=== PATIENT | female | born 1985 | race African-American/Black ===

== ENCOUNTER 2017-08-24 01:22 | Inpatient (IN) | payer MEDICAID, MEDICARE ==
[2017-08-24 02:23] LABS: Bilirubin Negative (Negative); Blood, Urine Large (Negative); Glucose, Urine (Dipstick) Negative (Negative); Ketone, Urine Negative (Negative); Nitrite Negative (Negative); Protein, Urine (Dipstick) 100 mg/dL (Neg-Trace)
[2017-08-24] MEDS ORDERED: Ketorolac Tromethamine 30 MG/ML VIAL ONE (02:24)
[2017-08-24 02:26] LABS: Bacteria/HPF 4+ HPF (None Seen); Squamous Epithelial 0-3 HPF (0-3)
[2017-08-24 02:38] LABS: Hyaline Casts/LPF 0-3 HYALINE CAST LPF (0-3 Hyaline)
[2017-08-24 03:02] LABS: ALT (SGPT) 53 U/L (8-55); AST (SGOT) 33 U/L (5-34); Alkaline Phosphatase 170 U/L (40-150); Anion Gap 16 mmol/L (10-20); BUN (Urea Nitrogen) 19 mg/dL (7.0-18.7); Bilirubin, Total 0.8 mg/dL (0.2-1.2); Calc. Creatinine Clearance 0 mL/min (70-130); Calcium 9.2 mg/dL (7.8-10.44); Carbon Dioxide 21 mmol/L (22-29); Chloride 99 mmol/L (98-107); Estimated GFR-MDRD 44; Globulin 4.2 g/dL (2.4-3.5); Protein, Total 7.6 g/dL (6.0-8.3)
[2017-08-24 03:19] LABS: Band 15 % (5-11); Hematocrit 32.4 % (36.0-47.0); Mean Platelet Volume 8.5 fL (7.4-10.4); Microcytosis SLIGHT = 6-15 cells (100X) (0-5/hpf); Neutrophil 70 % (42-75); Red Blood Cell (RBC) Count 4.03 mill/uL (4.20-5.40); Vacuoles SLIGHT; White Blood Cell (WBC) Count 35.4 thou/uL (4.8-10.8)
[2017-08-24 03:34] LABS: Lactic Acid - Sepsis 1.1 mmol/L (0.5-2.2)
[2017-08-24] MEDS ORDERED: Piperacillin/Tazobactam 4.5 GM in Sodium Chloride 0.9% 100 ML IVPB SCH (04:15)
[2017-08-24] MEDS ORDERED: traMADol HCl 50 MG TAB ONE (04:52)
[2017-08-24] MEDS ORDERED: Ondansetron HCl/PF 4 MG/2 ML Vial IVP PRN (05:48)
--- NOTE | 2017-08-24 06:08 | PDOC.EVN ---
Event Note - Event Note Event Note: [id number] H&P dictated 1. Sepsis 2. UTI 3. LOLI 4. Hypokalemia
[2017-08-24 06:25] LABS: Lactic Acid - Sepsis 0.7 mmol/L (0.5-2.2)
[2017-08-24] MEDS: Sodium Chloride 0.9% 1,000 ML IV SCH ×3 (06:31→18:44)
[2017-08-24] MEDS: Acetaminophen 325 MG TAB PO PRN ×4 (06:31→22:29)
[2017-08-24 07:05] VITALS: BMI 34.5
[2017-08-24] MEDS ORDERED: Sodium Chloride 0.9% 500 ML IV SCH (09:00)
--- NOTE | 2017-08-24 09:00 | HP ---
DATE OF ADMISSION: 08/24/2017 CHIEF COMPLAINT: Fever, body aches. HISTORY OF PRESENT ILLNESS: Patient is a 32-year-old female with no significant past medical history who came to the ER complaining of fever, chills, diffuse body aches. Symptoms started on , since then it persisted. The patient had an episode of nausea and vomiting also. The patient compla ins of loose stools today. Denies any cough, denies sputum production, complains of generalized fati ayush. The patient denies any dizziness, denies any lightheadedness, denies any cough, denies any ches t pain, denies any palpitations. PAST MEDICAL HISTORY: None. PAST SURGICAL HISTORY: Tubal ligation, cholecystectomy. SOCIAL HISTORY: Positive for smoking. Denies alcohol, denies any drugs. FAMILY HISTORY: Denies any heart problems. REVIEW OF SYSTEMS: Constitutional: Positive for fever and chills. Positive for body aches. Eyes: Vision problems. Ears: Denies any hearing loss. Neck: Denies any neck pain. Cardiovascular: De nies any chest pain. Respiratory: Denies any cough. Denies sputum production. Gastrointestinal: Positive for nausea and vomiting. Genitourinary: Positive for dysuria. Integumentary: Denies any rash. All other review of systems are reviewed and are negative. PHYSICAL EXAMINAITON: CONSTITUTIONAL/VITAL SIGNS: At the time of H&P performed, blood pressure is 119/70, heart rate of 10 1, pulse ox is 97%, temperature is 101.3. GENERAL: The patient appears tired. HEENT: Anterior nares patent. Nose normal. Ears normal. Teeth intact. Tongue is moist. NECK: Supple, no JVD. CARDIOVASCULAR SYSTEM: S1, S2 present, tachycardic. No murmurs, no rubs, no gallops. RESPIRATORY SYSTEM: No wheezing, no rhonchi. Breath sounds bilaterally. GASTROINTESTINAL: Abdomen is soft, nontender, no guarding, no organomegaly, no masses felt. Positiv e for mild flank tenderness bilaterally. INTEGUMENTARY: Denies rashes seen. CRANIAL NERVE SYSTEM: Cranial nerves intact. Follows commands. Strength intact, sensory intact. MUSCULOSKELETAL: No edema, good range of motion in all joints. PSYCHIATRIC: Mood is appropriate at this time. LABORATORY DATA: At the time of H&P performed, white count 35.4, hemoglobin 10.8, platelet count is 210. BMP: Sodium 130, potassium 3.4, chloride 99, CO2 21, BUN 19, creatinine 1.64. UA positive for greater than 50, too numerous to count WBCs, 100 protein. ASSESSMENT AND PLAN: The patient is a 32-year-old female: 1. Sepsis secondary to urinary tract infection. Plan to start the patient on broad spectrum antibio tics. Plan to consult ID to evaluate the patient. Plan to start the patient on IV fluids at 150 per hour. Plan to do p.r.n. Tylenol. 2. Nausea, vomiting, diarrhea. P.r.n. antiemetics. Monitor stool card. If diarrhea persists, then we will do further workup. 3. Urinary tract infection. Continue IV antibiotics. Plan to do CT renal stone protocol to evaluat e for any stone also. 4. Acute kidney injury. Continue IV fluids, repeat BMP in a.m. Avoid NSAIDs. The case was discussed in detail with the patient. Patient is full code.
[2017-08-24] MEDS: Piperacillin/Tazobactam 3.375 GM in Sodium Chloride 0.9% 100 ML IVPB SCH ×3 (10:50→21:37)
[2017-08-24] MEDS: Heparin 5,000 UNITS/ML VIAL SC SCH ×3 (10:51→21:37)
--- NOTE | 2017-08-24 10:51 | PDOC.EVN ---
Event Note - Event Note Event Note: Feels better now, No complaint. BP was low earlier, responded to a bolus of NS, 500cc. Continue current management.
[2017-08-24] MEDS ORDERED: FLU VACC QS2017-18 36 mo. & older 0.5 ML SYRINGE IM ONE (12:00)
--- NOTE | 2017-08-24 12:49 | CT ---
PRELIMINARY REPORT/[facility]/EMERGENCY AFTER HOURS PROCEDURE: EXAM: CT Abdomen and Pelvis Without Intravenous Contrast CLINICAL HISTORY: 32 years old, female; Pain; Abdominal pain; Localized; Lower; Prior surgery; Patient HX: Pt C/O lower abdominal pain radiating to lower back. Pt also C/O nausea. Surgical HX of cholecystectomy. TECHNIQUE: Axial computed tomography images of the abdomen and pelvis without intravenous contrast. Coronal reformatted images were created and reviewed. COMPARISON: No relevant prior studies available. FINDINGS: Lower thorax: No acute findings. ABDOMEN: Liver: Normal. Gallbladder and bile ducts: Cholecystectomy. Minimal nonspecific stranding about the gallbladder tunde a. Pancreas: Normal. Spleen: Normal. Adrenals: Normal. Kidneys and ureters: Moderate perinephric fat stranding and indistinct renal sinus fat bilaterally. N o renal or ureteral stone identified. No significant hydronephrosis. Stomach and bowel: Unremarkable. No obstruction. Appendix: No findings to suggest acute appendicitis. PELVIS: Bladder: Unremarkable. Reproductive: Unremarkable. ABDOMEN and PELVIS: Intraperitoneal space: No free air. No significant fluid collection. Bones/joints: Unremarkable. No acute fracture. Soft tissues: Unremarkable. Vasculature: Unremarkable. Lymph nodes: Multiple subcentimeter retroperitoneal lymph nodes. IMPRESSION: Bilateral perinephric fat stranding suspicious for pyelonephritis. Thank you for allowing us to participate in the care of your patient. Dictated and Authenticated by: Bruno Salcido MD 08/24/2017 6:56 AM Central Time ([place] & [place]) FINAL REPORT EMERGENCY AFTER HOURS CT OF ABDOMEN AND PELVIS PERFORMED WITHOUT CONTRAST ENHANCEMENT: Date: 08/24/17 HISTORY: Lower abdominal pain radiating to lower back. History of cholecystectomy. COMPARISON: 07/23/17 study. FINDINGS: The lung bases show subsegmental atelectatic change. The liver, spleen, and pancreas regions appear unremarkable. The gallbladder has been removed. Right and left adrenal glands are normal in appearance. Right and left kidneys show some perinephric fat stranding bilaterally, including some fat stranding in the region of the renal pelvis. This is a new finding as compared to the previous study. There is no significant periaortic or mesenteric adeno andie. CT of pelvis was performed without contrast enhancement. Appendix is normal. There appears to be a fo llicle or cyst involving the left adnexa. No evidence of adenopathy or mass. IMPRESSION: Bilateral perinephric fat stranding, which is new as compared to the previous study. This raises the possibility of pyelonephritis. Clinical correlation recommended. This report is in agreement with the preliminary report issued by [facility]. POS: [facility]
--- NOTE | 2017-08-24 17:34 | CON ---
DATE OF CONSULTATION: 08/24/2017 REASON FOR CONSULTATION: Pyelonephritis. HISTORY OF PRESENT ILLNESS: A 32-year-old with no significant past medical history who noticed dysuria which started a few days to the admission. She decided to take some amoxicillin that she had at home which did not lead to improvement. Eventually, she developed fever, chills, body aches, nausea and vomiting. She was admitted, started on broad spectrum coverage with some improvement. Currently, she denies headaches, visual symptoms, sore throat, odynophagia, dysphagia, no cough or sputum production or chest pain, no abdominal pain, no diarrhea, no more dysuria. No genitourinary symptoms otherwise. Last Pap smear recently was within normal limits. No neurological symptoms. PAST SURGICAL HISTORY: Includes tubal ligation. She is , cholecystectomy. SOCIAL HISTORY: Current smoker, used to work at [employer] FAMILY HISTORY: Noncontributory. CURRENT MEDICATIONS: Levofloxacin and Zosyn. FAMILY HISTORY: Noncontributory. PHYSICAL EXAMINATION: VITAL SIGNS: T-max 101.1 earlier today. She is now 99.6, BP 100/55. SKIN: Normal, no lymphadenopathy. HEENT: Noncontributory. NECK: Supple. LUNGS: Clear to auscultation and percussion. HEART: S1, S2, regular rate. No murmurs. No S3 or S4. ABDOMEN: Soft, without tenderness. No ascites. No bladder distention or organomegaly. EXTREMITIES: No joint inflammatory activity. NEUROLOGIC: Nonfocal. LABORATORY DATA: White cell count 35,000, hemoglobin 10, platelets 210, and 70 % neutrophils, 15% bands. Creatinine 1.64, GFR 44. Sodium 133, alkaline phosphatase 170, albumin 3.4. Urinalysis greater than 50 wbcs. Microbiology, pending cultures. Abdomen and pelvis CT was done, stone protocol style, bilateral perinephric fat stranding consistent with pyelonephritis. ASSESSMENT: Urinary tract infection with pyelonephritis. Still with quite pronounced inflammatory changes. DISCUSSION: The possibility of ESBL is considered and will switch her to meropenem until we have the culture results in view of the persistence of fever. Wait on culture results and then adjust antimicrobial therapy accordingly. MTDD
[2017-08-25] MEDS: Acetaminophen 325 MG TAB PO PRN ×2 (01:56→10:57)
[2017-08-25] MEDS: Sodium Chloride 0.9% 1,000 ML IV SCH ×4 (01:56→22:40)
[2017-08-25] MEDS: Piperacillin/Tazobactam 3.375 GM in Sodium Chloride 0.9% 100 ML IVPB SCH (04:55)
[2017-08-25 04:57] LABS: #Eosinphils 0.1 thou/uL (0.0-0.7); #Monocytes 1.6 thou/uL (0.11-0.59); #Neutrophils 13.4 thou/uL (1.40-6.50); %Basophils 0.1 % (0.0-1.0); %Eosinophils 0.4 % (0.0-10.0); %Lymphocytes 6.1 % (21.0-51.0); Hematocrit 28.3 % (36.0-47.0); Mean Platelet Volume 7.9 fL (7.4-10.4); Red Blood Cell (RBC) Count 3.48 mill/uL (4.20-5.40)
[2017-08-25 05:09] LABS: ALT (SGPT) 38 U/L (8-55); AST (SGOT) 31 U/L (5-34); Alkaline Phosphatase 120 U/L (40-150); Anion Gap 10 mmol/L (10-20); BUN (Urea Nitrogen) 10 mg/dL (7.0-18.7); Bilirubin, Total 0.7 mg/dL (0.2-1.2); Calc. Creatinine Clearance 112 mL/min (70-130); Calcium 8.3 mg/dL (7.8-10.44); Carbon Dioxide 20 mmol/L (22-29); Chloride 110 mmol/L (98-107); Estimated GFR-MDRD 74; Globulin 3.2 g/dL (2.4-3.5); Protein, Total 5.9 g/dL (6.0-8.3)
[2017-08-25] MEDS: Heparin 5,000 UNITS/ML VIAL SC SCH ×3 (08:12→20:19)
--- NOTE | 2017-08-25 10:41 | PDOC.PN ---
- Subjective Encounter Start Date: 08/25/17 Encounter Start Time: 08:00 Subjective: feels better -: had some nausea this am - Objective MAR Reviewed: Yes Vital Signs & Weight: Vital Signs (12 hours) Temp Pulse Resp BP BP Pulse Ox 08/25/17 08:40 100.4 F H 85 16 08/25/17 07:54 100.4 F H 85 16 106/62 98 08/25/17 04:05 98.9 F 103 H 16 98/60 96 08/24/17 23:17 99.6 F 96 18 103/57 L 98 Result Diagrams: 08/25/17 04:35 08/25/17 04:35 Phys Exam - Physical Examination HEENT: PERRLA, moist MMs Neck: no JVD, supple Respiratory: no wheezing, no rales Cardiovascular: RRR, no significant murmur Gastrointestinal: soft, non-tender, no distention, positive bowel sounds Musculoskeletal: no edema, pulses present Neurological: non-focal, moves all 4 limbs Psychiatric: A&O x 3 Dx/Plan (1) Acute pyelonephritis Code(s): N10 - ACUTE PYELONEPHRITIS Status: Acute (2) Sepsis Code(s): A41.9 - SEPSIS, UNSPECIFIED ORGANISM Status: Acute Qualifiers: Sepsis type: sepsis due to unspecified organism Qualified Code(s): A41.9 - Sepsis, unspecified organism (3) Nausea & vomiting Code(s): R11.2 - NAUSEA WITH VOMITING, UNSPECIFIED Status: Acute Qualifiers: Vomiting type: unspecified (4) Chronic anemia Code(s): D64.9 - ANEMIA, UNSPECIFIED Status: Chronic (5) Metabolic acidosis Code(s): E87.2 - ACIDOSIS Status: Acute - Plan is on meropenem -: urine culture will be sent now -: blood cs prelim -ve so far -: gentle iv hydration -: wbc down to 16 from 33k * . Review of Systems - Medications/Allergies Allergies/Adverse Reactions: Allergies Allergy/AdvReac Type Severity Reaction Status Date / Time No Known Allergies Allergy Verified 08/24/17 07:04 Medications: Current Medications Acetaminophen (Tylenol) 650 mg PO Q4H PRN PRN Reason: Headache/Fever or Pain Last Admin: 08/25/17 01:56 Dose: 650 mg Heparin Sodium (Porcine) (Heparin) 5,000 units SC TID DAVY Last Admin: 08/25/17 08:12 Dose: 5,000 units Sodium Chloride (Normal Saline 0.9%) 1,000 mls @ 150 mls/hr IV .Q6H40M [facility] Last Admin: 08/25/17 09:46 Dose: Not Given Meropenem 1 gm/ Miscellaneous Medication 1 each/ Sodium Chloride 100 mls @ 200 mls/hr IVPB Q8HR [facility] Loperamide HCl (Imodium) 2 mg PO Q4H PRN PRN Reason: Diarrhea/Loose Stools Ondansetron HCl (Zofran) 4 mg IVP Q6H PRN PRN Reason: Nausea/Vomiting Last Admin: 08/25/17 08:09 Dose: 4 mg Sodium Chloride (Flush - Normal Saline) 10 ml IVF Q12HR [facility] Last Admin: 08/25/17 09:46 Dose: Not Given Sodium Chloride (Flush - Normal Saline) 10 ml IVF PRN PRN PRN Reason: Saline Flush
[2017-08-25] MEDS ORDERED: Ketorolac Tromethamine 30 MG/ML VIAL IVP SCH (13:00)
[2017-08-25] MEDS: Meropenem 1 GM, Admixture Fee 1 EACH in Sodium Chloride 0.9% 100 ML IVPB SCH ×2 (15:41→22:38)
[2017-08-25] MEDS: Loperamide HCl 2 MG CAP PO PRN ×2 (16:20→20:19)
[2017-08-25] MEDS: Ibuprofen 600 MG TAB PO PRN (17:58)
[2017-08-25] MEDS: traMADol HCl 50 MG TAB PO PRN (20:18)
[2017-08-26] MEDS: traMADol HCl 50 MG TAB PO PRN ×4 (02:10→21:54)
[2017-08-26 05:28] LABS: #Eosinphils 0.1 thou/uL (0.0-0.7); #Lymphocytes 1.8 thou/uL (1.20-3.40); #Monocytes 1.2 thou/uL (0.11-0.59); #Neutrophils 7.2 thou/uL (1.40-6.50); %Basophils 0.3 % (0.0-1.0); %Eosinophils 1.4 % (0.0-10.0); %Lymphocytes 17.1 % (21.0-51.0); %Monocytes 11.8 % (0.0-10.0); Hematocrit 32.4 % (36.0-47.0); Mean Platelet Volume 7.9 fL (7.4-10.4); Red Blood Cell (RBC) Count 3.93 mill/uL (4.20-5.40); White Blood Cell (WBC) Count 10.4 thou/uL (4.8-10.8)
[2017-08-26 05:42] LABS: Anion Gap 10 mmol/L (10-20); BUN (Urea Nitrogen) 6 mg/dL (7.0-18.7); Calc. Creatinine Clearance 130 mL/min (70-130); Calcium 8.9 mg/dL (7.8-10.44); Carbon Dioxide 24 mmol/L (22-29); Chloride 109 mmol/L (98-107); Estimated GFR-MDRD 88
[2017-08-26] MEDS: Meropenem 1 GM, Admixture Fee 1 EACH in Sodium Chloride 0.9% 100 ML IVPB SCH ×3 (06:07→21:43)
[2017-08-26] MEDS ORDERED: Sodium Chloride 0.9% 1,000 ML IV SCH (07:00)
[2017-08-26] MEDS: Sodium Chloride 0.9% 1,000 ML IV SCH (07:29)
[2017-08-26] MEDS: Acetaminophen 325 MG TAB PO PRN (07:56)
[2017-08-26] MEDS: Heparin 5,000 UNITS/ML VIAL SC SCH ×3 (08:45→21:43)
--- NOTE | 2017-08-26 08:56 | PDOC.PN ---
- Subjective Encounter Start Date: 08/26/17 Encounter Start Time: 07:50 Subjective: had temp of 103 this am -: mild sob, no expectoration - Objective MAR Reviewed: Yes Vital Signs & Weight: Vital Signs (12 hours) Temp Pulse Resp BP BP Pulse Ox 08/26/17 08:00 103.9 F H 107 H 22 H 127/69 93 L 08/26/17 04:50 98.7 F 86 18 108/85 08/26/17 04:45 98.7 F 86 20 118/85 97 Result Diagrams: 08/26/17 05:14 08/26/17 05:14 Phys Exam - Physical Examination HEENT: PERRLA, sclera anicteric Neck: no JVD, supple Respiratory: no wheezing, no rales rhonchi+ Cardiovascular: RRR, no significant murmur Gastrointestinal: soft, non-tender, no distention, positive bowel sounds Musculoskeletal: no edema, pulses present Neurological: non-focal, moves all 4 limbs Psychiatric: A&O x 3 Dx/Plan (1) Acute pyelonephritis Code(s): N10 - ACUTE PYELONEPHRITIS Status: Acute (2) Sepsis Code(s): A41.9 - SEPSIS, UNSPECIFIED ORGANISM Status: Acute Qualifiers: Sepsis type: sepsis due to unspecified organism Qualified Code(s): A41.9 - Sepsis, unspecified organism (3) Nausea & vomiting Code(s): R11.2 - NAUSEA WITH VOMITING, UNSPECIFIED Status: Resolved Qualifiers: Vomiting type: unspecified (4) Chronic anemia Code(s): D64.9 - ANEMIA, UNSPECIFIED Status: Chronic (5) Metabolic acidosis Code(s): E87.2 - ACIDOSIS Status: Resolved - Plan still has persistent temp -: is on meropenem -: urine cs is growing ecoli, await full cs -: cxr, hiv serology is pending, to amb in hallway as tolerated -: hep profile is -ve, dc iv fluids * . Review of Systems - Medications/Allergies Allergies/Adverse Reactions: Allergies Allergy/AdvReac Type Severity Reaction Status Date / Time No Known Allergies Allergy Verified 08/24/17 07:04 Medications: Current Medications Acetaminophen (Tylenol) 650 mg PO Q4H PRN PRN Reason: Headache/Fever or Pain Last Admin: 08/26/17 07:56 Dose: 650 mg Heparin Sodium (Porcine) (Heparin) 5,000 units SC TID COUNTS INCLUDE 234 BEDS AT [facility] Last Admin: 08/26/17 08:45 Dose: 5,000 units Meropenem 1 gm/ Miscellaneous Medication 1 each/ Sodium Chloride 100 mls @ 200 mls/hr IVPB Q8HR DAVY Last Admin: 08/26/17 06:07 Dose: 100 mls Ibuprofen (Motrin) 600 mg PO Q8H PRN PRN Reason: Pain Last Admin: 08/25/17 17:58 Dose: 600 mg Loperamide HCl (Imodium) 2 mg PO Q4H PRN PRN Reason: Diarrhea/Loose Stools Last Admin: 08/25/17 20:19 Dose: 2 mg Ondansetron HCl (Zofran) 4 mg IVP Q6H PRN PRN Reason: Nausea/Vomiting Last Admin: 08/25/17 08:09 Dose: 4 mg Sodium Chloride (Flush - Normal Saline) 10 ml IVF Q12HR COUNTS INCLUDE 234 BEDS AT [facility] Last Admin: 08/26/17 07:52 Dose: Not Given Sodium Chloride (Flush - Normal Saline) 10 ml IVF PRN PRN PRN Reason: Saline Flush Tramadol HCl (Ultram) 50 mg PO Q6H PRN PRN Reason: Pain Last Admin: 08/26/17 07:49 Dose: 50 mg
--- NOTE | 2017-08-26 10:14 | RAD ---
PORTABLE AP CHEST: Date: 08-26-17 History: Evaluate for infiltrate. Patient initially admitted for UTI and complaints of lower abdomina l pain with pain radiating to lower back. Nausea. Comparison: None. FINDINGS: Cardiac silhouette is magnified by projection. Pulmonary vasculature is within normal limits for the portable technique of the study. Lungs appear clear. Osseous structures are intact. IMPRESSION: No acute cardiopulmonary process. POS: [facility]
[2017-08-26] MEDS: Ibuprofen 600 MG TAB PO PRN (11:53)
[2017-08-26] MEDS: Albuterol Sulfate 1.25 MG/3 ML NEB NEB SCH ×2 (14:29→22:43)
--- NOTE | 2017-08-26 17:18 | PRG ---
DATE OF SERVICE: 08/26/2017 SUBJECTIVE: Feeling better. No headaches. No abdominal pain. Voiding without difficulty. No neur ological symptoms: OBJECTIVE: VITAL SIGNS: T-max 99.9 and 103.9 recently. LUNGS: Clear. HEART: S1, S2, regular rate. ABDOMEN: Some tenderness in left flank, moves all extremities equally. EXTREMITIES: No joint inflammatory activity. LABORATORY DATA: White cell count 10.4, hemoglobin 10.2, platelets 197, creatinine down to 0.9, curr ently receiving meropenem 1 gram rate q.8. On biology file, we have an E. coli retrieved from 017, urine culture pending susceptibilities. ASSESSMENT AND DISCUSSION: Urinary tract infection, pyelonephritis. Now that we will have an isolat e we will be able to define discharge planning antimicrobial therapy and to allow possibly conversion to oral if the E. coli is susceptible to quinolones.
[2017-08-27] MEDS: Acetaminophen 325 MG TAB PO PRN (02:03)
[2017-08-27] MEDS: Ibuprofen 600 MG TAB PO PRN (03:55)
[2017-08-27] MEDS: Meropenem 1 GM, Admixture Fee 1 EACH in Sodium Chloride 0.9% 100 ML IVPB SCH (05:49)
[2017-08-27] MEDS: Albuterol Sulfate 1.25 MG/3 ML NEB NEB SCH (07:45)
[2017-08-27] MEDS: Heparin 5,000 UNITS/ML VIAL SC SCH (09:39)
--- NOTE | 2017-08-27 11:43 | PDOC.PN ---
- Subjective Encounter Start Date: 08/27/17 Encounter Start Time: 11:41 Ms. Khanna was seen today in follow-up for Pyelonephritis. She does not have any complaints. He denies nausea or vomiting, no abdominal pain or back pain. - Objective MAR Reviewed: Yes Vital Signs & Weight: Vital Signs (12 hours) Temp Pulse Resp BP BP Pulse Ox 08/27/17 07:45 102 H 16 95 08/27/17 07:34 98.1 F 102 H 16 116/78 97 08/27/17 03:55 99.7 F H 113 H 17 109/64 99 08/27/17 02:00 100.8 F H 104 H 18 127/70 97 I&O: 08/26/17 08/27/17 08/28/17 06:59 06:59 06:59 Intake Total 860 Balance 860 Result Diagrams: 08/26/17 05:14 08/26/17 05:14 Phys Exam - Physical Examination HEENT: PERRLA Respiratory: no wheezing, no rales, no rhonchi, clear to auscultation bilateral Cardiovascular: RRR, no significant murmur Gastrointestinal: soft, non-tender, positive bowel sounds Musculoskeletal: no edema Dx/Plan (1) Acute pyelonephritis Code(s): N10 - ACUTE PYELONEPHRITIS Status: Acute - Plan * Pyelonephritis- resolving. Urine culture and susceptibilities have returned * She is stable for discharge home..
--- NOTE | 2017-08-27 12:08 | DIS ---
DATE OF ADMISSION: 08/24/2017 DATE OF DISCHARGE: 08/27/2017 PRIMARY CARE PHYSICIAN: The patient currently does not have a primary care physician. DISCHARGE DISPOSITION: Home. PRIMARY DISCHARGE DIAGNOSIS: Acute pyelonephritis. DISCHARGE MEDICATIONS: Include Levaquin 500 mg p.o. q. day. PROCEDURES DONE DURING ADMISSION: The patient had a CT scan of the abdomen and pelvis, which was neg ative for any nephrolithiasis and findings were consistent with pyelonephritis with some perinephric stranding. CODE STATUS: FULL CODE. ALLERGIES: No known drug allergies. HOSPITAL COURSE: Ms. Khanna is a pleasant 32-year-old female who was admitted with complaints of fl ank pain, fever and body aches. She was found to have acute pyelonephritis. Urine was consistent wi th urinary tract infection. The urine cultures grew E. coli, which was sensitive to quinolones. Aft er she had clinically and symptomatically improved, she was stable for discharge home and told to fol low up with her primary care physician in 1-2 weeks.
[2017-08-27 12:17] VITALS: BP 118/77; TEMP 98.4
== END 2017-08-27 12:56 | disposition home or self-care (01) | DRG 872 ==
LOC: ERS 01:22 → 2SW 05:46 → 3SE 08-25 16:56
PROVIDERS: ADMIT Internal Medicine; ATTEND Internal Medicine
DX: A41.9 Sepsis, unspecified organism (principal); N17.9 Acute kidney failure, unspecified; E87.2 Acidosis; N10 Acute pyelonephritis; B96.20 Unspecified Escherichia coli [E. coli] as the cause of diseases classified elsewhere; E87.6 Hypokalemia; F17.210 Nicotine dependence, cigarettes, uncomplicated; D64.9 Anemia, unspecified
CPT/HCPCS: 36415; 71010; 74176; 80048; 80053; 80074; 81003; 81015; 83605; 84703; 85025; 87015; 87040; 87045; 87046; 87077; 87086; 87186; 87324; 87389; 87449; 87899; 94640; 96361; 96365; 96367; 96375; A4216; J1644; J1885; J1956; J2185; J2405; J2543; J3370; J7050